=== PATIENT | male | born 1945 | race Caucasian/White ===

== ENCOUNTER → 2017-02-02 | Outpatient (CLI) | payer MEDICARE ==
[~2017-02-02] MED LIST: ASPIRIN ENTERI325 M1 PO; MELOXICAM15 MG PO; PERCOCET10 PO; TYLENOL ARTHRITIS PO
--- NOTE | ~2017-02-02 | CO ---
Unit #: [id number] #: [id number] Patient: RANDI BEJARANO [id number] [address] [place], [place] [address] [id number] O MR#: [id number] NAME: RANDI BEJARANO ROOM: Age: 71 Sex: M Admission Date: 02/02/2017 : 1945 Attending Physician: Eddie Crooks M.D. Primary Care Physician: Jennifer Carroll M.D. Consultation Date: 02/02/2017 CONSULTATION REPORT REASON FOR CONSULTATION Preoperative medical evaluation prior to left total knee arthroplasty scheduled by Dr. Crooks for 02/15/2017. HISTORY OF PRESENT ILLNESS The patient is a 71-year-old male, who presents to preprocedural screening for the reason as indicated above. He reports intermittent pain in the left medial aspect of the left knee after walking for short period of time with subsequent developing pain in the left hip and left lower back area and then uneven gait. He has no other complaints at the time of this interview today. He denies upper chest, upper back, arm, neck, jaw pain or pressure. Denies dyspnea on exertion, PND, or orthopnea. He does snore per his 's report. He denies lightheadedness, dizziness, presyncope, syncope, or palpitations. He is aware that he has a history of atrial and ventricular ectopy, which has been diagnosed as benign per his circuit breaker assembler, Dr. Schuster, although he is asymptomatic and does not feel them. He denies history of myocardial infarction, congestive heart failure, CVA, TIA, diabetes mellitus, or kidney disease. He has been evaluated by Dr. Crooks and scheduled for the above-referenced procedure. PAST MEDICAL HISTORY 1. Osteoarthritis. 2. Sciatica. 3. History of atrial and ventricular ectopy. 4. Questionable hypertension with history of white-coat syndrome. PAST SURGICAL HISTORY Tonsillectomy, colonoscopy, and Oral surgery. Please note, the patient denies a personal and family history of complications to anesthesia. ALLERGIES No known medication allergies. No latex allergy. Although, adhesive tape causes skin irritation. CURRENT MEDICATIONS Meloxicam 15 mg p.o. every morning, Tylenol Arthritis 650 mg p.o. daily p.r.n. pain. SOCIAL HISTORY Denies tobacco use. Consumes EtOH weekly. Denies illicit drug use. Unit #: [id number] #: [id number] Patient: RANDI BEJARANO FAMILY HISTORY Per review of Dr. Crooks's office note, cancer. REVIEW OF SYSTEMS A 10-point review of systems is conducted and otherwise negative except as indicated under history of present illness above. PHYSICAL EXAMINATION GENERAL: A 71-year-old male, seated in recliner, awake, in no acute distress. VITAL SIGNS: Temperature... Dictated by... Ankita Pro A.P.R.N. for Nick Brady M.D. CLEMENT/fredo TD: 02/02/2017 16:21 JOB #: [id number] CONSULTATION REPORT Page 1 of 1 X Ankita Pro APRN X CONSULTATION REPORT
--- NOTE | ~2017-02-02 | CR63 ---
[facility] A Service of [facility] RADIOLOGY TEXT RESULTS PATIENT: RANDI BEJARANO LOCATION: [facility] : [birth year] UNIT #: [id number] AGE: [address]: Eddie Crooks MD SEX: M ORDER DR: [id number] [facility] [address] [facility]. [place], [place] [address] [id number] O MR#: [id number] Acc #: [id number] NAME: RANDI BEJARANO : 1945 SEX: M STUDY DATE/TIME: 02/02/2017 8:31 UNIT: [facility] ROOM: STUDY DESCRIPTION: CR Chest 2 View Attending Physician: Eddie Crooks M.D. Referring Physician: Eddie Crooks M.D. Ordering Physician: Eddie Crooks M.D. Primary Care Physician: Jennifer Carroll M.D. MEDICAL IMAGING REPORT This report is preliminary unless electronic signature is present EXAM PA and lateral chest DATE 02/02/2017 at 08:31 HISTORY 71-year-old male undergoing preoperative evaluation for left knee surgery. COMPARISON None. FINDINGS Linear opacities are present toward the lung bases favored to represent scarring. No acute lung consolidations are identified. Heart size is upper limits normal. Pulmonary vascular distribution is normal. No pleural effusion, pneumothorax. Mild diminished disc height in the mid thoracic spine. No acute osseous abnormality. IMPRESSION 1. Linear scarring in the lung bases. 2. Borderline cardiac enlargement. 3. No acute chest findings. Dictated by... Natali German M.D. THIS IS AN ELECTRONICALLY VERIFIED REPORT Natali German M.D. at 02/02/2017 5:[address] [facility]/pretty TD: 02/02/2017 12:26 JOB #: [id number] [facility] A Service [facility] RADIOLOGY TEXT RESULTS PATIENT: RANDI BEJARANO [facility] [id number] : [birth year] UNIT #: [id number] AGE: [address]: Eddie Crooks MD SEX: M ORDER DR: MEDICAL IMAGING REPORT Page 1 of 1 COPY
--- NOTE | ~2017-02-02 | CO ---
Unit #: [id number] #: [id number] Patient: RANDI BEJARANO [id number] [address] [place], [place] [address] [id number] O MR#: [id number] NAME: RANDI BEJARANO ROOM: Age: 71 Sex: M Admission Date: 02/02/2017 : 1945 Attending Physician: Eddie Crooks M.D. Primary Care Physician: Jennifer Carroll M.D. CONSULTATION REPORT JOB NOTE: ADDENDUM CONTINUATION PHYSICAL EXAMINATION GENERAL: A 71-year-old male, awake, alert, seated in recliner, in no acute distress. VITAL SIGNS: Temperature 97.1, heart rate 60, respiratory rate 16, blood pressure 161/90, oxygen saturation 100% on room air. HEENT: Atraumatic and normocephalic. Sclerae anicteric. No discharge from eyes, ears, or nares. LYMPH: No preauricular, postauricular, tonsillar, submental, anterior or posterior cervical adenopathy. ENDOCRINE: No thyromegaly, thyroid nodules, or tenderness. RESPIRATORY: Clear to auscultation in all brown bilaterally without wheezes, rhonchi, or rales. CARDIOVASCULAR: S1, S2. Irregular rate and rhythm without murmur or rub. GI: Bowel sounds are positive x4. Soft, nontender, nondistended. EXTREMITIES: No edema, cyanosis, or clubbing. MUSCULOSKELETAL: Strength 5/5 in all extremities bilaterally to flexion and extension. NEUROLOGIC: Alert and oriented x3. Speech clear. Follows directions during examination. DIAGNOSTIC STUDIES LABORATORY RESULTS: WBC 7.4, hemoglobin 13.9, hematocrit 41.5, platelets 222,000. Blood type A positive. PT 10.6, INR 1.0. Sodium 141, potassium 4.5, chloride 107, CO2 of 27, glucose 93, BUN 23, creatinine 1.0, calcium 8.8. AST 23, ALT 20, alkaline phos 37, bilirubin total 0.9, total protein 6.3, albumin 3.9. Urinalysis negative with neither microscopic nor culture indicated. MRSA nasal swab report pending at this time. IMAGING STUDIES: Two-view chest x-ray report pending at this time. CARDIOVASCULAR STUDIES: A 12-lead EKG, date of study 12/24/2016; sinus rhythm with PACs. IMPRESSION The patient is a 71-year-old male, who presents to preprocedural screening for: 1. Preoperative medical evaluation prior to left total knee arthroplasty scheduled by Dr. Crooks. The patient's Gusman revised cardiac risk index based on information available today is 0.4% to 0.5% and represents the patient's rate of fatal or nonfatal myocardial infarction, Unit #: [id number] #: [id number] Patient: RANDI BEJARANO cardiopulmonary arrest, pulmonary edema, and/or arrhythmia. This has been discussed in detail with the patient, he wishes to proceed with surgery as scheduled at this time. Please note, the patient has been evaluated by his agility instructor, Dr. Schuster and has been given a note a cardiac clearance, which is with the medical record today. 2. Osteoarthritis. 3. Sciatica. 4. History of atrial and ventricular ectopy. The patient is completely asymptomatic and this has been diagnosed as benign by the agility instructor. I will place the patient on graduate teaching assistant on the orthopedic unit postoperatively to monitor trends. 5. Questionable hypertension versus white-coat syndrome. The patient's blood pressure is mildly elevated today. We will monitor trends postoperatively. 6. Intermittent left knee pain. Pain management will be per Dr. Crooks's orders. Thank you for allowing us to participate in care of this patient. Preoperative dental clearance is pending at this time. The patient has an appointment today at 2:30 p.m. for dental evaluation and cleaning in order to obtain a note of preop dental clearance. Dictated by... Ankita Pro A.P.R.N. for Anabella Hunt/fredo TD: 02/02/2017 18:18 JOB #: [id number] CONSULTATION REPORT Page 1 of 1 X Ankita Pro FIRE SAFETY INSPECTOR X CONSULTATION REPORT
[2017-02-02 08:32] LABS: URINE APPEARANCE CLEAR; URINE BILIRUBIN NEG (NEG); URINE BLOOD NEG (NEG); URINE COLOR YELLOW; URINE GLUCOSE NEG (NEG); URINE KETONE NEG (NEG); URINE LEUKOCYTE ESTERASE NEG (NEG); URINE NITRATE NEG (NEG); URINE PROTEIN NEG (NEG); URINE SPECIFIC GRAVITY 1.027 (1.003-1.035); URINE UROBILINOGEN 0.2 MG/DL (NEG)
[2017-02-02 08:34] LABS: URINE SOURCE CLEAN CATCH
[2017-02-02 08:35] LABS: CULTURE INDICATED? NO
[2017-02-02 08:49] LABS: HEMATOCRIT 41.5 % (38.0-50.0); HEMOGLOBIN 13.9 gm/dL (13.0-16.0); MEAN CELL VOLUME 93.9 FL (83-96); MEAN CORPUSCULAR HEMOGLOBIN 31.5 PG (28-34); MEAN CORPUSCULAR HGB CONC 33.5 g/dL (30-36); MEAN PLATELET VOLUME 8.4 FL (6.5-11.5); RED BLOOD COUNT 4.42 X10e (3.90-5.60); RED CELL DISTRIBUTION WIDTH 13.4 % (11.0-15.5); WHITE BLOOD COUNT 7.4 X10e3 (4.0-10.5)
[2017-02-02 09:00] LABS: PROTHROMBIN TIME (PATIENT) 10.6 SECONDS (10.0-11.7)
[2017-02-02 09:15] LABS: ALBUMIN SERUM 3.9 g/dL (3.5-5.0); BILIRUBIN,TOTAL 0.9 mg/dL (0.2-2.0); CALCIUM SERUM 8.8 mg/dL (8.4-10.2); GLOM FILT RATE Estimated 76.5 mL/min (>60); POTASSIUM 4.5 mmol/L (3.5-5.1); PROTEIN TOTAL SERUM 6.3 g/dL (6.0-8.3)
== END | disposition home or self-care (01) ==
LOC: CAMB 02-01 08:00
PROVIDERS: Orthopaedic Surgery
DX: Z01.818 Encounter for other preprocedural examination (principal); M17.11 Unilateral primary osteoarthritis, right knee; R91.8 Other nonspecific abnormal finding of lung field; I51.7 Cardiomegaly; M54.30 Sciatica, unspecified side; Z86.79 Personal history of other diseases of the circulatory system
CPT/HCPCS: 36415; 71020; 80053; 81003; 85027; 85610; 86850; 86900; 86901; 87070